=== PATIENT | male | born 2000 | race Two or more races ===

== ENCOUNTER 2021-04-29 11:40 | Emergency (ER) | payer SELFPAY ==
--- NOTE | ~2021-04-29 | XR_ITS ---
EXAMINATION: XR chest 2V DATE: 04/29/2021 11:59 INDICATION: Shortness of breath TECHNIQUE: PA and lateral views of the chest are obtained. COMPARISON: None available FINDINGS: The lungs are free of acute opacities. There is no pleural effusion or pneumothorax. The ca rdiomediastinal silhouette is normal. There is mild thoracic spondylosis. IMPRESSION: 1. No acute cardiopulmonary abnormality. Reviewed, dictated and finalized at location B.
[2021-04-29 11:42] VITALS: BP 127/83; PULSE 55; RESP 18; TEMP 36.3; O2SAT 100
--- NOTE | 2021-04-29 11:42 | ECG_ITS ---
Measurements Intervals [place] Rate: 51 P: 52 NM: 129 QRS: 92 QRSD: 106 T: 63 QT: 389 QTc: 359 Interpretive Statements SINUS BRADYCARDIA RIGHT AXIS DEVIATION [QRS AXIS > 90] ST-ELEVATION, LIKELY EARLY REPOLARIZATION [ST ELEVATION WITH NORMALLY INFLECTED T WAVE] VERSUS PERICARDITIS ABNORMAL ECG NO PREVIOUS ECG AVAILABLE FOR COMPARISON Electronically Signed On 04-29-2021 16:27:13 CDT by Ramy Wolfe M.D.
[2021-04-29 11:57] LABS: Basophils Percent Auto 0.3 % (0.2-1.2); Eosinophils Absolute Auto 0.2 K/mm3 (0-0.3); Eosinophils Percent Auto 1.6 % (0-4.4); Hematocrit 50.4 % (42.0-52.0); Immature Granulocyte Absolute 0.03 K/mm3 (0.00-0.031); Immature Granulocyte Percent A 0.3 % (0-0.5); Lymphocytes Absolute Auto 1.17 K/mm3 (0.9-3.2); Lymphocytes Percent Auto 12.7 % (18.3-44.2); Mean Corpuscular HGB Conc 33.7 g/dl (32-36); Mean Corpuscular Hemoglobin 31.7 pg (26-34); Mean Corpuscular Volume 93.9 fl (80-100); Mean Platelet Volume 9.7 fl (7.4-10.4); Monocytes Absolute Auto 0.8 K/mm3 (0.1-0.6); Monocytes Percent Auto 8.9 % (2.6-8.5); Neutrophils Percent Auto 76.2 % (45.5-73.1); Platelet Count Result 259 k/mm3 (150-375); Red Blood Count 5.37 M/mm3 (4.6-6.20); Red Cell Distribution Width 13.9 % (11.5-14.5); White Blood Count 9.2 K/mm3 (4.5-10.0)
[2021-04-29 12:06] LABS: Alanine Aminotransferase 31 U/L (4-50); Albumin Level 4.8 g/dL (3.7-5.6); Alkaline Phosphatase 65 U/L (58-237); Anion Gap 7 mmol/L (8-16); Aspartate Amino Transferase 45 U/L (17-59); Bilirubin,Total 0.7 mg/dL (0.2-1.3); Blood Urea Nitrogen 14 mg/dL (8-21); Calcium 9.4 mg/dL (8.9-10.7); Carbon Dioxide 27 mmol/L (22-30); Chloride 105 mmol/L (98-107); Estimated CRCL calculation 120 ml/min; Estimated Glomerular Filt Rate > 60; Glucose 117 mg/dL (65-110); Potassium 4.2 mmol/L (3.4-5.0); Sodium 139 mmol/L (134-143)
== END 2021-04-29 13:14 | disposition left against medical advice (07) ==
LOC: ANHED 13:01
PROVIDERS: Emergency Provider Emergency Medicine
DX: R07.9 Chest pain, unspecified (principal)
CPT/HCPCS: 36415; 71046; 80053; 85025; 93005; 99199

== ENCOUNTER 2021-06-22 15:46 | Inpatient (IN) | payer OTHER, SELFPAY ==
[2021-06-22] VITALS (48 sets, daily range): BP systolic 97–159; BP diastolic 62–99; PULSE 47–109; RESP 9–31; TEMP 36.7–36.9; O2SAT 96–100; BMI 29.7
--- NOTE | 2021-06-22 | ECHO_ITS ---
Patient Info Name: Bird Cheatham Age: 20 years : 2000 Gender: Male Ht: 69 in Wt: 200 lbs BSA: 2.12 m2 HR: 89 bpm BP: 141 / 81 mmHg Heart Rhythm: Sinus Rhythm Technical Quality: Good Exam Date: 06/22/2021 7:03 PM Exam Location: [facility] Pulmonary Exam Room: ER 5 Patient Status: Emergency Admit Date: 06/22/2021 Staff Ordering Physician: Eva Rick MD Cemetery Counselor: Audra Fish RDCS Attending Provider: Eliana Dee MD Exam Type: CA echo doppler color flow Study Info Indications - CHEST PAIN Complete two-dimensional, color flow and Doppler transthoracic echocardiogram is performed. Summary 1. Complete two-dimensional, color flow and Doppler transthoracic echocardiogram is performed. 2. Normal left ventricular size and thickness. Normal left ventricular function with no segmental wall motion abnormalities. Ejection fraction 60-65%. Global longitudinal strain was -19% which is normal. Normal diastolic function. 3. No significant valve abnormalities. 4. Borderline pulmonary hypertension. 5. No pericardial effusion. 6. Normal sinus rhythm. Left Ventricle Left ventricular chamber dimension is normal. Left ventricular systolic function is normal, estimated at Empty. There is no increased left ventricular wall thickness. Left ventricular septal wall motion is normal. The left ventricular diastolic function is normal. Right Ventricle Right ventricular chamber dimension is normal. Right ventricular systolic function is normal. Left Atria Left atrial chamber dimension is normal. Right Atria Right atrial chamber dimension is normal. Aortic Valve The aortic valve is trileaflet. There is no aortic valve sclerosis. There is no aortic valve stenosis. There is no aortic valve regurgitation. Pulmonic Valve The pulmonic valve is normal. There is no pulmonic valve stenosis. There is trace pulmonic regurgitation. Mitral Valve The mitral valve has normal leaflets. There is no mitral valve stenosis. There is trace mitral valve regurgitation. Tricuspid Valve The tricuspid valve leaflets are normal. There is no significant tricuspid valve stenosis. There is no tricuspid valve regurgitation. Mild pulmonary hypertension, estimated pulmonary arterial systolic pressure is 39 mmHg. Pericardium/Pleural The pericardium appears normal. There is no pericardial effusion. Inferior Vena Cava Normal inferior vena cava with >50% collapse upon inspiration consistent with Empty right atrial pressure, 5 mmHg. Aorta The aortic root size at the sinus of Valsalva is normal. The prox ascending aorta size is normal. Left Ventricular Outflow Tract Name Value Normal LVOT 2D LVOT Diameter 2.1 cm LVOT Doppler LVOT Peak Gradient 6 mmHg LVOT Mean Gradient 3 mmHg LVOT VTI 23 cm LVOT VTI/AV VTI Ratio 1.0 LVOT Stroke Volume 81 ml LVOT CO 17.8 l/min LVOT CI 8.4
--- NOTE | ~2021-06-22 | XR_ITS ---
EXAMINATION: XR chest 1V portable 06/22/2021 16:08 INDICATION: Chest pain PROCEDURE: 2 view chest COMPARISON: 04/29/2021 FINDINGS: The lungs are clear. The cardiomediastinal silhouette is within normal limits. There are no pleural effusions. There is no pneumothorax suspected. IMPRESSION: 1: NO ACUTE CARDIOPULMONARY DISEASE. Reviewed, dictated and finalized at location A.
--- NOTE | ~2021-06-22 | CT_ITS ---
EXAMINATION: CTA chest DATE: 06/22/2021 18:03 INDICATION: Chest pain RADIATING INTO l ARM, ELEVATED tROPONIN TECHNIQUE: Computed tomography angiography (CTA) of the chest was performed with 100 mL Omnipaque-300 intravenous contrast timed to evaluate the pulmonary arteries. Coronal maximum intensity projection 3D-reconstructions were created by the technologist. The dose-length product (DLP) was 620.92 mGy-cm. Automated exposure control and iterative reconstruction technique were employed. COMPARISON: None. FINDINGS: Study quality: Adequate. Pulmonary arteries: No pulmonary emboli detected. Thoracic aorta: Normal. Lung parenchyma and airways: Clear. Thoracic inlet, axillae and chest wall: Mild bilateral gynecomastia, otherwise unremarkable. Mediastinum: Subcentimeter prevascular lymph node. Residual thymic tissue. Heart and pericardium: Normal. Coronary artery calcifications: Absent. Pleura: Unremarkable. Upper abdomen: Low-density liver parenchyma. Multiple gastroesophageal lymph nodes measuring up to 8 mm in short axis diameter. Bones: No acute osseous finding. IMPRESSION: No CT evidence of acute pulmonary embolus. Possible steatosis. Reviewed, dictated and finalized at location K.
--- NOTE | 2021-06-22 15:48 | ECG_ITS ---
Measurements Intervals [place] Rate: 56 P: 61 IN: 121 QRS: 93 QRSD: 106 T: 63 QT: 389 QTc: 378 Interpretive Statements SINUS BRADYCARDIA RIGHT AXIS DEVIATION ST ELEVATION IN DIFFUSE LEADS- CONSIDER EARLY REPOLARIZATION ABNORMALITY BASELINE ARTIFACT- I, II, III, AVR, AVL, AVF BORDERLINE ECG Electronically Signed On 06-22-2021 16:22:11 CDT by Schuyler Gomez D.O.
--- NOTE | 2021-06-22 15:56 | ED.CHESTPAIN ---
HPI - Chest Pain General Chief Complaint: Chest Pain <Eva Rick MD - Last Filed: 06/22/21 19:02> Stated Complaint: chest pain <Eva Rick MD - Last Filed: 06/22/21 19:02> Time Seen by Provider: 06/22/21 15:56 <Eva Rick MD - Last Filed: 06/22/21 19:02> Source: patient and family <Eva Rick MD - Last Filed: 06/22/21 19:02> Mode of arrival: ambulatory <Eva Rick MD - Last Filed: 06/22/21 19:02> Limitations: no limitations <Eva Rick MD - Last Filed: 06/22/21 19:02> History of Present Illness HPI narrative: Patient is 20 years old white male came to the emergency room with sudden onset of retrosternal chest pain radiating left upper extremity and front of the neck, started 30 minutes prior to arrival. Had similar symptoms in April 2021 came to our emergency room then left the ED because his symptoms resolved. Patient's mother reports that patient have a lot of stress lately. Patient does not take medicine at home, he does vape and uses marijuana occasionally, denies cocaine use, denies any fever, chills, nausea, vomiting, shortness of breath. <Eva Rick MD - Last Filed: 06/22/21 19:02> Related Data Allergies/Adverse Reactions: Allergies Allergy/AdvReac Type Severity Reaction Status Date / Time No Known Allergies Allergy Verified 06/22/21 15:58 <Eva Rick MD - Last Filed: 06/22/21 19:02> Review of Systems Review of Systems: All systems reviewed & are unremarkable except as noted in HPI and below <Eva Rick MD - Last Filed: 06/22/21 19:02> PMFSH Past Medical History Medical History: Medical History (Updated 06/22/21 @ 18:26 by Emilia Mccoy MD) No significant past medical history <Eva Rick MD - Last Filed: 06/22/21 19:02> Family History Family History: Family History (Updated 06/22/21 @ 18:20 by Emilia Mccoy MD) Father Alive and well Mother Alive and well Other Heart disease uncle has had MIs and CABG Cerebrovascular accident <Eva Rick MD - Last Filed: 06/22/21 19:02> Social History Social History: Social History (Updated 06/22/21 @ 18:20 by Emilia Mccoy MD) Social History: did not finish high school. Currently not working. Vapes and uses marijuana no other drug use. Tobacco type: e-cigarettes/vaping Substance use type: marijuana <Eva Rick MD - Last Filed: 06/22/21 19:02> Exam Narrative: General appearance: Well-developed, well-nourished, looks anxious Skin: Normal color Head: Normocephalic, nontraumatic Eyes: Clear conjunctiva ENT: Oropharynx normal, ears normal, nose normal Neck: Supple, nontender Chest and respiratory: Airway patent, no respiratory distress, no accessory muscle use Heart: Regular rate/rhythm Abdomen: Soft, nontender, no organomegaly, quiet bowel sounds Vascular: Normal peripheral pulses, normal capillary refill. Musculoskeletal: Normal range of motion, nontender back Neurologic: Alert and oriented ?3, SATELL[employer] SPECIALIST is normal as tested, no gross motor deficit <Eva Rick MD - Last Filed: 06/22/21 19:02> Course Course Emergency Course: Patient arrived to the ED with retrosternal chest pain. His EKG showed ST elevation consistent with early repolarization, no difference between the EKG today and last EKG April 29, 2021. Initially patient received aspirin and Ativan for possible stress-induced chest pain, subsequently pain down from 10 out of 10 to 6 out of 10. His troponin came back at 4.4. Dr. Mccoy was consulted, came to the emergency room, then requested to give sublingual nitroglycerin, with some improvement down to 3 out of 10.
[2021-06-22] MEDS: ASPIRIN 81 MG CHEWABLE TABLET 324 MG PO (15:59)
[2021-06-22] MEDS: LORazepam INJ (*CRX) 2 MG/ML VIAL 1 MG IV PUSH (16:01)
[2021-06-22 16:10] LABS: Basophils Absolute Auto 0.1 K/mm3 (0.0-0.1); Basophils Percent Auto 0.7 % (0.2-1.2); Eosinophils Absolute Auto 0.9 K/mm3 (0-0.3); Eosinophils Percent Auto 8.3 % (0-4.4); Hemoglobin 17.3 g/dL (14.0-18.0); Immature Granulocyte Absolute 0.05 K/mm3 (0.00-0.031); Immature Granulocyte Percent A 0.4 % (0-0.5); Lymphocytes Absolute Auto 1.71 K/mm3 (0.9-3.2); Lymphocytes Percent Auto 15.1 % (18.3-44.2); Mean Corpuscular HGB Conc 33.9 g/dl (32-36); Mean Corpuscular Volume 94.3 fl (80-100); Mean Platelet Volume 9.8 fl (7.4-10.4); Monocytes Absolute Auto 1.2 K/mm3 (0.1-0.6); Monocytes Percent Auto 10.5 % (2.6-8.5); Neutrophils Absolute Auto 7.3 K/mm3 (1.3-6.7); Platelet Count Result 320 k/mm3 (150-375); Red Blood Count 5.41 M/mm3 (4.6-6.20); Red Cell Distribution Width 13.2 % (11.5-14.5); White Blood Count 11.3 K/mm3 (4.5-10.0)
[2021-06-22 16:21] LABS: Prothrombin Time 12.8 Seconds (11.1-14.7)
[2021-06-22 16:22] LABS: Partial Thromboplastin Time 29.3 SECONDS (22.3-36.8)
[2021-06-22 16:24] LABS: Alanine Aminotransferase 21 U/L (6-50); Albumin Level 4.7 g/dL (3.7-5.6); Alkaline Phosphatase 70 U/L (58-237); Anion Gap 10 mmol/L (8-16); Aspartate Amino Transferase 44 U/L (17-59); Bilirubin,Total 0.8 mg/dL (0.2-1.3); Blood Urea Nitrogen 9 mg/dL (8-21); Calcium 9.7 mg/dL (8.9-10.7); Carbon Dioxide 27 mmol/L (22-30); Chloride 103 mmol/L (98-107); Estimated CRCL calculation 88 ml/min; Estimated Glomerular Filt Rate > 60; Glucose 108 mg/dL (65-110); Lipase 70 U/L (23-300); Potassium 3.6 mmol/L (3.4-5.0); Sodium 140 mmol/L (134-143)
[2021-06-22 17:17] LABS: Erythrocyte Sedimentation Rate 10 mm/hr (0-20)
[2021-06-22] MEDS: NITROGLYCERIN SL 0.4 MG TABLET (17:31)
--- NOTE | 2021-06-22 17:31 | PC.NURSE ---
Pt given 1 SL 0.4 tab of Nitro at this time per Dr Thao DICKSON. Pt rates his pain a 5/10 currently.
--- NOTE | 2021-06-22 17:38 | PC.NURSE ---
2nd SL nitro tab given per Dr Mccoy, pt rates pain a 5/10, states no change or decrease in pain
[2021-06-22] MEDS: MORPHINE SULFATE (*CRX) 4 MG/ML INJ IV PUSH (18:07)
[2021-06-22] MEDS: ONDANSETRON INJ 4 MG/2 ML VIAL IV PUSH (18:07)
--- NOTE | 2021-06-22 18:13 | PM.CNCAR ---
Assessment and Plan Assessment and plan (1) Chest pain: Qualifiers: Chest pain type: unspecified Qualified Code(s): R07.9 - Chest pain, unspecified Code(s): R07.9 - Chest pain, unspecified Status: Acute Assessment and Plan: healthy young male presents with chest pain for 2 months which sounds atypical but intense chest discomfort tonight that sounds more typical for acute coronary syndrome /[place]. There is a pleuritic component suggestive of pericarditis. His EKG shows early repolarization, possible pericarditis. However his troponin is 4.4 which is unusual but can occur with a myopericarditis. Nothing in the history to suggest an acute aortic dissection. It would be extremely unusual for this young healthy man to have any acute coronary syndromes, coronary spasm, CAD. However I was concerned about his symptoms which sounded much like an acute coronary syndrome /[place] and reviewed the situation with our interventionalist, Dr. Asha Domínguez. He also reviewed the EKGs. He felt it was very unlikely to have an acute coronary syndrome and recommended a CTA and stat echo. Discussed with patient and mother. History of Present Illness History of Present Illness Consult date/time: 06/22/21 18:13 Requesting physician: Eva Rick MD Reason For Visit: chest pain Narrative: Bird Cheatham Is a 20-year-old male whom I was asked to see at the request of Dr. Rick for my advice and opinion regarding his chest pain, abnormal EKG and elevated troponins in consultation. Mr. Cheatham is a previously healthy young man with no significant past medical history. In April he experience stabbing chest pain and came to the emergency room. His EKG showed early repolarization. The pain went away and he left without being seen. He has had little episodes of chest discomfort and stabbing chest pains lasting for minute to 5 minutes off and on with no particular pattern. Yesterday was a normal day. Today 2 hours prior to admission he woke from his nap with bilateral arm aching, particularly the left arm which felt like it had been lifting a 1000 lb , and it was super sore. He started having substernal chest pressure and hard pushing. Later when he was riding in a car with his mother the pain intensified and radiated up to the throat area. the patient's mother said he could not get comfortable and appeared to be in severe pain, crying out and she brought him to the emergency room where he complained of 12/10 chest pain. He was given aspirin and Ativan; apparently he has been under lot of stress recently. The pain is decline to a 5/10 pressure. The discomfort has been waxing waning. I instructed his nurse to give nitro and after the 2nd one there may have been some improvement. There is a mild pleuritic component to it. There is no associated nausea vomiting or diaphoresis all he does have a headache. Is nonpositional and non reproducible. Patient's troponin is 4.4. There is nohistory of any hypertension or heart problems. He has not been doing any heavy lifting. He does vape and smokes marijuana, including this morning, but denies any otherdrug use, specifically no cocaine, methamphetamines etc.. No strong family history of heart disease. Review of Systems Review of Systems: history of COVID a year ago Constitutional: Constitutional: Reports no additional constitutional complaints Eyes: Eyes: Reports no additional eye complaints ENT: Denies epistaxis Comments: sore throat a few days ago Cardiovascular: Cardiovascular: Reports chest pain, Denies diaphoresis, Denies leg edema and Denies lightheadedness Respiratory: Respiratory: Denies cough and Denies dyspnea Gastrointestinal: Gastrointestinal: Denies abdominal pain Genitourinary: Genitourinary: Denies dysuria Musculoskeletal: Musculoskeletal: Reports no additional musculoskeletal complaints Integumentary/Breasts: Skin/Breast: Denies rash Neurologic: Report
[2021-06-22 19:45] LABS: Barbiturate Screen Urine Negative (Negative); Benzodiazepines Screen Urine Negative (Negative)
[2021-06-22 19:47] LABS: Amphetamine Screen Urine Negative (Negative); Cannabinoid Screen Urine Positive (Negative); Cocaine Screen Urine Negative (Negative); Methadone Screen Urine Negative (Negative); Opiate Screen Urine Negative (Negative); Phencyclidine Screen Urine Negative (Negative)
[2021-06-22] MEDS: COLCHICINE 0.6 MG TABLET PO (20:27)
[2021-06-22] MEDS: INDOMETHACIN 25 MG CAPSULE 75 MG PO (20:28)
--- NOTE | 2021-06-22 21:40 | ECG_ITS ---
Measurements Intervals [place] Rate: 52 P: 55 CA: 124 QRS: 97 QRSD: 114 T: 60 QT: 389 QTc: 364 Interpretive Statements SINUS BRADYCARDIA WITH SINUS ARRHYTHMIA RIGHT AXIS DEVIATION ST ELEVATION IN DIFFUSE LEADS- CONSIDER EARLY REPOLARIZATION ABNORMALITY BORDERLINE ECG Electronically Signed On 06-23-2021 6:42:30 CDT by Schuyler Gomez D.O.
--- NOTE | 2021-06-22 21:41 | ECG_ITS ---
Measurements Intervals [place] Rate: 69 P: 45 ME: 136 QRS: 104 QRSD: 93 T: 46 QT: 368 QTc: 397 Interpretive Statements SINUS RHYTHM WITH SINUS ARRHYTHMIA RIGHT AXIS DEVIATION BASELINE ARTIFACT- I, II, AVR, AVL, AVF BORDERLINE ECG Electronically Signed On 06-23-2021 6:37:53 CDT by Schuyler Gomez D.O.
[2021-06-22] MEDS: NITROGLYCERIN OINTMENT 1 INCH DOSE TRANSDERM (22:11)
[2021-06-22 22:53] LABS: SARS-CoV-2 RNA PCR Negative
--- NOTE | 2021-06-22 23:40 | ADMGEN ---
This patient, Bird Cheatham, was admitted to IMU Room 210-01 at 2340. Patient/family oriented to hospital policies and general routines including ID bracelet, bed and alarms, visiting hours, pain management, procedures, bathroom and other care routines, personal items, smoking policy, room service/diet, and visiting hours. Information on how to activate the Rapid Response Team has been discussed. Patient/Family are encouraged to report perceived risks to care and to ask questions if they do not understand what they are told or what they should do.
[2021-06-23] VITALS (23 sets, daily range): BP systolic 110–147; BP diastolic 45–79; PULSE 54–114; RESP 16–20; TEMP 36.5–37.2; O2SAT 95–100
--- NOTE | 2021-06-23 05:01 | PM.IMHP ---
H&P: HPI History of Present Illness Date/Time: 06/23/21 05:01 Chief Complaint: Chest pain Narrative: 20-year-old previously healthy male who presented to the ER with sudden onset of retrosternal chest pain radiating to the left upper extremity and the up the anterior neck. Then just been occurred while the patient was at rest. The pain had no eliciting factors. Patient did not have any increased pain with deep breathing. He reports that over the last 2 months he has had a couple of episodes of chest pain that or shorter lived in only last about 5 minutes and were sharp and stabbing in nature. He had not noticed any pattern to those chest pains. His pains this time were different any reported that is arm, chest and throat felt ?super sore.? He reported that felt like he had been lifting a 1000 lb weight. He did not have any associated nausea or diaphoresis. He has not had any nausea, vomiting, shortness of breath, cough, sore throat or viral symptoms. He denies any recent ill contacts. He has not noticed any lower extremity swelling, orthopnea or paroxysmal nocturnal dyspnea. Denies a history of palpitations. He reports that if he eats a lot of junk food he will have some heartburn symptoms. But his heartburn symptoms are different from the symptoms of brought him in this visit. He reports that recently he has been trying to watch what foods he eats and has managed to take off a few lb. He has not been doing any specific exercises. In the ER the patient received 2 nitroglycerin and morphine as well as Zofran. His pain was relieved after 2nd nitro and relieved after morphine. He has not had a recurrence of his chest pain. Patient does occasionally use marijuana. He gets his marijuana from the same source that he usually does any does not think that is marijuana has been laced with anything else. He has been vaping for a couple of years. He only drinks alcohol about once a week and only in moderation. Review of Systems Review of Systems: 12 systems were reviewed with pertinent positives and negatives per HPI. Except as documented in the HPI, all other systems were reviewed and are negative. [facility] Past Medical History Medical History (Updated 06/23/21 @ 08:46 by Jimena Gómez DO) No significant past medical history Surgical History Surgical History (Updated 06/23/21 @ 08:46 by Jimena Gómez DO) History of sinus surgery Family History Family History Father Alive and well Mother Alive and well Other Heart disease uncle has had MIs and CABG Cerebrovascular accident Social History Social History (Updated 06/23/21 @ 08:47 by Jimena Gómez DO) Social History: He went to high school through his [employer] year but did not graduate. He is currently unemployed. He has been vaping for 2 years. He uses marijuana daily. He drinks a couple of alcoholic beverages once a week. He lives at home with his mother. Smoking status: Current every day smoker Tobacco type: e-cigarettes/vaping Alcohol intake: current Substance use type: marijuana Spiritual care concerns: No Meds Home Medications and Allergies Allergies Allergy/AdvReac Type Severity Reaction Status Date / Time No Known Allergies Allergy Verified 06/22/21 15:58 Vital Signs Vital Signs - 24 hr 06/22/21 15:48 06/22/21 15:56 06/22/21 15:57 Temperature 98.4 F Pulse Rate 88 76 83 Respiratory Rate 18 13 14 Blood Pressure 149/99 H 156/63 H Pulse Oximetry 99 97 100 06/22/21 16:00 06/22/21 16:01 06/22/21 16:15 Temperature Pulse Rate 67 51 L 47 L Respiratory Rate 14 9 L 13 Blood Pressure 159/96 H Pulse Oximetry 100 100 100 06/22/21 16:17 06/22/21 16:30 06/22/21 16:32 Temperature Pulse Rate 59 L 55 L 52 L Respiratory Rate 11 L 14 16 Blood Pressure 156/96 H 134/73 Pulse Oximetry 99 100 98 06/22/21 16:45 06/22/21 16:46 06/22/21 17:00 [place]
[2021-06-23] MEDS: COLCHICINE 0.6 MG TABLET PO ×2 (08:36→21:20)
[2021-06-23] MEDS: ASPIRIN 81 MG CHEWABLE TABLET PO (08:36)
--- NOTE | 2021-06-23 09:06 | PM.PNCARD ---
Progress Note: A&P Additional Plan 1-NSTEMI 2-Marijuana use. This is 20-year-old patient with no medical problems who presents here with intermittent chest pain for the last couple months. It is central in location radiating to his neck. No aggravating or relieving factors. CTA thorax ruled out pulmonary embolism, aortic dissection. Troponins are elevated. EKG initially shows subtle ST elevations inferiorly and V2 to V6 that looks like early repolarization however pericarditis cannot be excluded. Echocardiogram looks unremarkable. At this time concerned about possible coronary dissection or coronary event. Discussed risks and benefits of cardiac catheterization with the patient including risk of bleeding, infection, damage to the arteries and vessels while working, emergency surgery, stroke, heart attack, , renal failure. Benefits outweigh the risk. He agrees to proceed. Will plan for cath this morning. Subjective Date/time seen: DOS: 06/23/21 09:06 06/23-resting comfortably in bed. Denies chest pain overnight. No arrhythmias overnight. Heart rate is normal Review of Systems Constitutional: Constitutional: Reports no additional constitutional complaints and Reports headache(s) Eyes: Eyes: Reports no additional eye complaints ENT: Reports headache(s) and Denies epistaxis Cardiovascular: Cardiovascular: Reports chest pain, Denies diaphoresis, Denies leg edema, Denies lightheadedness and Denies dyspnea Respiratory: Respiratory: Denies cough and Denies dyspnea Gastrointestinal: Gastrointestinal: Denies abdominal pain Genitourinary: Genitourinary: Denies dysuria Musculoskeletal: Musculoskeletal: Reports no additional musculoskeletal complaints Integumentary/Breasts: Skin/Breast: Denies rash Neurologic: Reports headache(s) Psychiatric: Psychiatric: Reports anxiety Exam Narrative: Young healthy-appearing male who appears concern but not in much distress, mother at the bedside. Const: General: no acute distress and uncomfortable HENMT: General nose exam: no epistaxis Eyes: EOM: EOMs intact bilaterally Neck: Neck: supple and no JVD Thyroid: thyroid normal Carotids: no bruits Lymphatic: lymphadenopathy not noted Chest: Other: no chest wall tenderness Resp: Auscultation: clear to auscultation bilaterally Cardio: Rate: regular rate Rhythm: regular rhythm Heart sounds: no murmurs and no rubs Other: Intact dorsalis pedis pulses GI: Inspection: non-distended Skin: General skin exam: normal color and no rashes or lesions noted Neuro: Cognition (Neuro): normal cognition Speech: normal speech Extrem: General: no edema and no pedal edema Psych: Mental Status: mental status grossly normal Affect: normal affect Objective Data Vital Signs Vital Signs: Vital Signs - 24 hr 06/22/21 15:48 06/22/21 15:56 06/22/21 15:57 Temperature 36.9 C Pulse Rate 88 76 83 Respiratory Rate 18 13 14 Blood Pressure 149/99 H 156/63 H Pulse Oximetry 99 97 100 06/22/21 16:00 06/22/21 16:01 06/22/21 16:15 Temperature Pulse Rate 67 51 L 47 L Respiratory Rate 14 9 L 13 Blood Pressure 159/96 H Pulse Oximetry 100 100 100 06/22/21 16:17 06/22/21 16:30 06/22/21 16:32 Temperature Pulse Rate 59 L 55 L 52 L Respiratory Rate 11 L 14 16 Blood Pressure 156/96 H 134/73 Pulse Oximetry 99 100 98 06/22/21 16:45 06/22/21 16:46 06/22/21 17:00 Temperature Pulse Rate 61 62 93 Respiratory Rate 11 L 15 31 H Blood Pressure 141/96 H Pulse Oximetry 100 98 99 06/22/21 17:02 06/22/21 17:08 06/22/21 17:20 Temperature Pulse Rate 57 L 79 56 L Respiratory Rate 26 H 18 18 Blood Pressure 146/68 H 146/68 H Pulse Oximetry 100 99 98 06/22/21 17:30 06/22/21 17:31 06/22/21 17:34 Temperature Pulse Rate 84 79 92 Respiratory Rate 20 27 H 28 H Blood Pressure 139/82 139/82 Pulse Oximetry 100 99 98 06/22/21 17:40 06/22/21 17:45 06/22/21 17:46 Temperature Pulse Rate 103 H 94 87
--- NOTE | 2021-06-23 10:23 | WPDMODSED ---
Moderate Sedation Note-Pt Data Patient Data Allergies Allergy/AdvReac Type Severity Reaction Status Date / Time No Known Allergies Allergy Verified 06/22/21 15:58 Current Medications: Active Medications Acetaminophen (Acetaminophen 325 Mg Tablet) 650 mg PO Q4H PRN PRN Reason: Pain Rated 1-3 Hydrocodone Bitart/Acetaminophen (Hydrocodone/Acetaminophen (*Crx) 5-325 Mg Tablet) 1 tab PO Q6H PRN PRN Reason: Pain Rated 4-6 Aspirin (Aspirin 81 Mg Chewable Tablet) 81 mg PO DAILY@0800 [facility] Last Admin: 06/23/21 08:36 Dose: 81 mg Documented by: Calcium Carbonate (Calcium Carbonate (Tums) 500 Mg (200 Mg Elemental)) 200 mg PO Q6H PRN PRN Reason: Indigestion Colchicine (Colchicine 0.6 Mg Tablet) 0.6 mg PO Q12HR [facility] Last Admin: 06/23/21 08:36 Dose: 0.6 mg Documented by: Sodium Chloride (Normal Saline Iv) 500 mls @ 100 mls/hr IV CONT .Q5H [facility] Nitroglycerin (Nitroglycerin Sl 0.4 Mg Tablet) 0.4 mg SUBLINGUAL Q5MIN PRN PRN Reason: chest pain Perflutren Lipid Microsphere (Perflutren Lipid Microspheres 1.5 Ml Vial Diluted To 10 Ml Total Volume) 0 ml IV PUSH ONCE PRN; Protocol PRN Reason: adequate visualization Sedation/Anesthesia: No previous sedation/anesthesia problems (including family history). FOR[facility], [facility] Past Medical History Medical History No significant past medical history Surgical History Surgical History History of sinus surgery Family History Family History Father Alive and well Mother Alive and well Other Heart disease uncle has had MIs and CABG Cerebrovascular accident Social History Social History Social History: He went to high school through his [employer] year but did not graduate. He is currently unemployed. He has been vaping for 2 years. He uses marijuana daily. He drinks a couple of alcoholic beverages once a week. He lives at home with his mother. Smoking status: Current every day smoker Tobacco type: e-cigarettes/vaping Alcohol intake: current Substance use type: marijuana Spiritual care concerns: No Mod Sed Physical Exam Physical Exam Pre Procedural Exam: Normal: Appearance, Eyes, Ears, Nose, Neck, Throat, Airway, Lungs, Heart Size, Heart Rate, Heart Rhythm, Neuro Exam, Abdomen, Liver, Kidneys, Spleen, Breasts, Genitalia, Extremities and Skin Hours since solid foods: 8 Hours since liquid intake: 8 Mallampati Classification: class 1 Internal Medicine - PN: Obj Da Vital Signs Vital Signs: Vital Signs - 24 hr 06/22/21 15:48 06/22/21 15:56 06/22/21 15:57 Temperature 36.9 C Pulse Rate 88 76 83 Respiratory Rate 18 13 14 Blood Pressure 149/99 H 156/63 H Pulse Oximetry 99 97 100 06/22/21 16:00 06/22/21 16:01 06/22/21 16:15 Temperature Pulse Rate 67 51 L 47 L Respiratory Rate 14 9 L 13 Blood Pressure 159/96 H Pulse Oximetry 100 100 100 06/22/21 16:17 06/22/21 16:30 06/22/21 16:32 Temperature Pulse Rate 59 L 55 L 52 L Respiratory Rate 11 L 14 16 Blood Pressure 156/96 H 134/73 Pulse Oximetry 99 100 98 06/22/21 16:45 06/22/21 16:46 06/22/21 17:00 Temperature Pulse Rate 61 62 93 Respiratory Rate 11 L 15 31 H Blood Pressure 141/96 H Pulse Oximetry 100 98 99 06/22/21 17:02 06/22/21 17:08 06/22/21 17:20 Temperature Pulse Rate 57 L 79 56 L Respiratory Rate 26 H 18 18 Blood Pressure 146/68 H 146/68 H Pulse Oximetry 100 99 98 06/22/21 17:30 06/22/21 17:31 06/22/21 17:34 Temperature Pulse Rate 84 79 92 Respiratory Rate 20 27 H 28 H Blood Pressure 139/82 139/82 Pulse Oximetry 100 99 98 06/22/21 17:40 06/22/21 17:45 06/22/21 17:46 Temperature Pulse Rate 103 H 94 87 Respiratory Rate 23 H 19 25 H Blood Pressure 142/72 H 143/62 H Pulse Oximetry 97 97 98 06/22/21 18:10 06/22/21 18:14 06/22/21
--- NOTE | 2021-06-23 10:24 | WPDCARDPROC ---
Cardiac Cath Procedure Note Date of procedure:: 06/23/21 Performing physician:: Paul Castillo MD Indication:: Chest pain and elevated troponins Brief clinical history:: 20-year-old patient with no significant past medical history presents with 1 month of intermittent chest pain, elevated troponins. EKG shows ST elevations inferior and anterolateral leads. This could be pericarditis however due to high troponins we need to rule out CAD Procedure Procedure performed:: 1-Moderate sedation that started at 9:46 a.m. and ended at 10:19 a.m. total duration 33 minutes using 4mg of Versed and c fentanyl. The registered nurse was nixon us. 2-Selective left and right coronary angiogram. 3-Left heart catheterization with measurement of LVEDP and measurement of gradient across aortic valve. 4- LV angiogram. 4-Right common femoral arterial angiogram. 5-Deployment of 6 [place] Angio-Seal. Sedation/Medication given:: Moderate sedation. Access site:: Right common femoral artery. Estimated blood loss:: 10cc Procedure note:: After informed consent patient was brought in to field laboratory operator with the was draped and prepped in usual manner. Moderate sedation was given and the right groin was infiltrated using 1% lidocaine. Five [place] sheath was obtained using micropuncture needle and the modified Seldinger technique. Selective left coronary angiogram was done using JL4 catheter with the tip of the catheter placed in the left main coronary artery. Selective right coronary angiogram was done using JR4 catheter And then AR1 catheter with the tip of the catheter placed to the right coronary artery. there was catheter-induced spasm with JR4 and therefore used AR1 along with nitroglycerin injection and the spasm much improved. After that 5 [place]an pigtail catheter was advanced across the aortic valve into the left ventricle with measurement of LVEDP and measurement of gradient across aortic valve. LV angiogram done. Right common femoral arterial angiogram was done. Findings:: 1- left coronary artery is a large artery that divides into large LAD, large circumflex artery. Left main is short and free of disease. 2- left anterior descending artery is a large artery that runs and wraps around the apex. free of disease. Large diagonal 1 branch free of disease. 3- leftcircumflex artery is a large artery Free of disease. Large OM1 free of disease. 4- right coronary artery is large artery and dominant and free of disease. There was catheter-induced spasm at the ostium that much improved with nitroglycerin. 5- LVEDP was 14 mm Hg and no gradient across aortic valve. 5- LV angiogram shows normal LV systolic function with no wall motion abnormalities. Ascending aorta appears to be normal. 6- opening arterial pressure was 150/80 and closing pressure was 120/80 7- right femoral artery angiogram shows no significant disease in the right common femoral artery. Conclusion:: no CAD - most likely this is myopericarditis. Assessment and Plan Additional Plan - start colchicine. - aspirin 81 mg
[2021-06-23] MEDS: SODIUM CHLORIDE 0.9% IV 1,000 ML 125 ML IV CONT (13:15)
[2021-06-23] MEDS: HYDROcodone/acetaminophen (*CRX) 5-325 MG TABLET 1 TAB PO ×2 (14:56→21:19)
--- NOTE | 2021-06-23 15:41 | PM.IMPN ---
Progress Note: A&P Assessment and Plan (1) Chest pain: Qualifiers: Chest pain type: unspecified Qualified Code(s): R07.9 - Chest pain, unspecified Code(s): R07.9 - Chest pain, unspecified Status: Acute Assessment and Plan: (2) Marijuana use: Code(s): F12.90 - Cannabis use, unspecified, uncomplicated Status: Acute (3) Myopericarditis: Code(s): I31.9 - Disease of pericardium, unspecified Status: Acute Additional Plan Intermittent chest pain x1 month CTA negative for PE or dissection EKG with early repolarization versus mild ST elevation Significantly elevated troponin up to 10 Echocardiogram with no abnormality Cardiac catheterization done 06/23/2021 with no coronary artery disease Most likely myopericarditis Colchicine started EBV and CMV orders COVID PCR negative Will check for influenza Time Spent With Patient Time with patient: 15 - 25 minutes Subjective Date/time seen: 06/23/21 15:41 Interval history: HPI:20-year-old previously healthy male who presented to the ER with sudden onset of retrosternal chest pain radiating to the left upper extremity and the up the anterior neck. Then just been occurred while the patient was at rest. The pain had no eliciting factors. Patient did not have any increased pain with deep breathing. He reports that over the last 2 months he has had a couple of episodes of chest pain that or shorter lived in only last about 5 minutes and were sharp and stabbing in nature. He had not noticed any pattern to those chest pains. His pains this time were different any reported that is arm, chest and throat felt ?super sore.? He reported that felt like he had been lifting a 1000 lb weight. He did not have any associated nausea or diaphoresis. He has not had any nausea, vomiting, shortness of breath, cough, sore throat or viral symptoms. He denies any recent ill contacts. He has not noticed any lower extremity swelling, orthopnea or paroxysmal nocturnal dyspnea. Denies a history of palpitations. He reports that if he eats a lot of junk food he will have some heartburn symptoms. But his heartburn symptoms are different from the symptoms of brought him in this visit. He reports that recently he has been trying to watch what foods he eats and has managed to take off a few lb. He has not been doing any specific exercises. In the ER the patient received 2 nitroglycerin and morphine as well as Zofran. His pain was relieved after 2nd nitro and relieved after morphine. He has not had a recurrence of his chest pain. Patient does occasionally use marijuana. He gets his marijuana from the same source that he usually does any does not think that is marijuana has been laced with anything else. He has been vaping for a couple of years. He only drinks alcohol about once a week and only in moderation. 06/23/2021 no overnight events. no nauea, vomting. chest is sore but better. no fever, chills. cath note reviewed Review of Systems Review of Systems: All systems reviewed & are unremarkable except as noted in HPI and below (HPI) Exam Narrative: General: No acute distress, overweight HEENT: Mucous membranes are moist, no oral pharyngeal erythema, crowded posterior oropharynx, large neck circumference Respiratory: Clear to auscultation bilaterally, no increased work of breathing Cardiovascular: Regular rate, regular rhythm, 2+ bilateral radial pedal pulses, no pericardial rub, no murmur Gastrointestinal: Soft, nontender, nondistended, positive bowel sounds Skin: Non jaundice, no pallor Musculoskeletal: No clubbing, cyanosis or edema Neurological: Alert and oriented, speech is clear, no facial asymmetry Psychiatric: Appropriate mood and affect, cooperative : Deferred Hematologic/lymphatic: No anterior cervical lymphadenopathy, no petechiae, no bruising Objective Data Vital Signs Vital Signs: Vital Signs - 24 hr 06/22/21 15:48
[2021-06-23 18:52] LABS: Influenza Control Positive
[2021-06-24] VITALS (13 sets, daily range): BP systolic 131–138; BP diastolic 65–81; PULSE 54–106; RESP 16–24; TEMP 36.3–37; O2SAT 95–100
[2021-06-24] MEDS: COLCHICINE 0.6 MG TABLET PO (08:24)
[2021-06-24] MEDS: ASPIRIN 81 MG CHEWABLE TABLET PO (08:24)
--- NOTE | 2021-06-24 09:45 | PM.PNCARD ---
Progress Note: A&P Assessment and Plan (1) Myopericarditis: Code(s): I31.9 - Disease of pericardium, unspecified Status: Acute Assessment and Plan: Placed on colchicine yesterday which is to be continued for [address] Castillo. Patient is free from chest pain this morning. Troponin trended down. Discussed with patient and his mother who is at the bedside that any recurrence of chest pain or shortness of breath should be evaluated. He is stable for discharge home today from a cardiac perspective. Close outpatient follow up. (2) Chest pain: Qualifiers: Chest pain type: unspecified Qualified Code(s): R07.9 - Chest pain, unspecified Code(s): R07.9 - Chest pain, unspecified Status: Acute Assessment and Plan: healthy young male presents with chest pain for 2 months which sounds atypical but intense chest discomfort tonight that sounds more typical for acute coronary syndrome /TN. There is a pleuritic component suggestive of pericarditis. His EKG shows early repolarization, possible pericarditis. However his troponin is 4.4 which is unusual but can occur with a myopericarditis. Nothing in the history to suggest an acute aortic dissection. It would be extremely unusual for this young healthy man to have any acute coronary syndromes, coronary spasm, CAD. Nevertheless, the decision was made to proceed to the pipelines laborer for coronary angiogram which did not reveal any CAD, dissection, stress CMY. Subjective Date/time seen: 06/24/21 09:45 Cardiology follow up for chest pain, elevated troponins, myopericarditis Feeling significantly better this morning. He has no chest pain. Denies any shortness of breath or palpitations. His troponin level has trended down. Review of Systems Constitutional: Constitutional: Reports no additional constitutional complaints and Reports headache(s) Eyes: Eyes: Reports no additional eye complaints ENT: Reports headache(s) and Denies epistaxis Cardiovascular: Cardiovascular: Reports chest pain, Denies diaphoresis, Denies leg edema, Denies lightheadedness and Denies dyspnea Respiratory: Respiratory: Denies cough and Denies dyspnea Gastrointestinal: Gastrointestinal: Denies abdominal pain Genitourinary: Genitourinary: Denies dysuria Musculoskeletal: Musculoskeletal: Reports no additional musculoskeletal complaints Integumentary/Breasts: Skin/Breast: Denies rash Neurologic: Reports headache(s) Psychiatric: Psychiatric: Reports anxiety Exam Narrative: Young healthy-appearing male resting comfortably in bed Const: General: no acute distress and uncomfortable HENMT: General nose exam: no epistaxis Eyes: EOM: EOMs intact bilaterally Neck: Neck: supple and no JVD Thyroid: thyroid normal Carotids: no bruits Lymphatic: lymphadenopathy not noted Chest: Other: no chest wall tenderness Resp: Auscultation: clear to auscultation bilaterally Cardio: Rate: regular rate Rhythm: regular rhythm Heart sounds: no murmurs and no rubs Other: Intact dorsalis pedis pulses GI: Inspection: non-distended Skin: General skin exam: normal color and no rashes or lesions noted Other: Right groin arterial access site free from bleeding, hematoma, bruit. Neuro: Cognition (Neuro): normal cognition Speech: normal speech Extrem: General: no edema and no pedal edema Psych: Mental Status: mental status grossly normal Affect: normal affect Objective Data Vital Signs Vital Signs: Vital Signs - 24 hr 06/23/21 10:45 06/23/21 11:00 06/23/21 11:15 Temperature 36.8 C Pulse Rate 59 L 54 L 59 L Respiratory Rate 16 16 16 Blood Pressure 125/68 121/74 119/69 Pulse Oximetry 99 96 97 06/23/21 11:30 06/23/21 12:00 06/23/21 12:30 Temperature Pulse Rate 62 56 L 55 L Respiratory Rate 16 18 18 Blood Pressure 120/70 126/74 132/73 Pulse Oximetry 98 98 97 06/23/21 12:52 06/23/21 13:30 06/23/21 14:00 Temperature 36.6 C Pulse Rate 62 9
--- NOTE | 2021-06-24 16:19 | PM.DS ---
DS: Admitting Diagnosis Discharge Date 06/24/2021 Admitting Diagnosis chest pain DS: Discharge Diagnosis Discharge Diagnosis (1) Chest pain: Qualifiers: Chest pain type: unspecified Qualified Code(s): R07.9 - Chest pain, unspecified Code(s): R07.9 - Chest pain, unspecified Status: Acute (2) Marijuana use: Code(s): F12.90 - Cannabis use, unspecified, uncomplicated Status: Acute (3) Myopericarditis: Code(s): I31.9 - Disease of pericardium, unspecified Status: Acute DS: Summary Hospital Course Hospital Course: patient presented with Intermittent chest pain x1 month CTA negative for PE or dissection EKG with early repolarization versus mild ST elevation troponin was significantly elevated up to 10 Echocardiogram with no abnormality Cardiac catheterization done 06/23/2021 with no coronary artery disease Most likely myopericarditis Colchicine started EBV and CMV orders which are pending COVID PCR negative however reports recent history of COVID infection month ago check for influenza which came back negative He will be continued on colchicine scheduled and ibuprofen p.r.n. for his myopericarditis Follow-up with Cardiology on outpatient basis Time Spent with Patient Time attestation: Total time spent providing and/or coordinating discharge services: 45 minutes Exam Narrative: General: No acute distress, overweight HEENT: Mucous membranes are moist, no oral pharyngeal erythema, crowded posterior oropharynx, large neck circumference Respiratory: Clear to auscultation bilaterally, no increased work of breathing Cardiovascular: Regular rate, regular rhythm, 2+ bilateral radial pedal pulses, no pericardial rub, no murmur Gastrointestinal: Soft, nontender, nondistended, positive bowel sounds Skin: Non jaundice, no pallor Musculoskeletal: No clubbing, cyanosis or edema Neurological: Alert and oriented, speech is clear, no facial asymmetry Psychiatric: Appropriate mood and affect, cooperative : Deferred Hematologic/lymphatic: No anterior cervical lymphadenopathy, no petechiae, no bruising DS: Data Data Completed and Pending Labs on day of discharge: Labs from last 24 hours 06/24/21 06/23/21 05:30 18:31 Troponin I 6.470 H* Influenza Types A,B Ag Negative Procedures/Treatments: Cardiac Cath Procedure Note Date of procedure:: 06/23/21 Performing physician:: Paul Castillo MD Indication:: Chest pain and elevated troponins Brief clinical history:: 20-year-old patient with no significant past medical history presents with 1 month of intermittent chest pain, elevated troponins. EKG shows ST elevations inferior and anterolateral leads. This could be pericarditis however due to high troponins we need to rule out CAD Procedure Procedure performed:: 1-Moderate sedation that started at 9:46 a.m. and ended at 10:19 a.m. total duration 33 minutes using 4mg of Versed and c fentanyl. The registered nurse was nixon us. 2-Selective left and right coronary angiogram. 3-Left heart catheterization with measurement of LVEDP and measurement of gradient across aortic valve. 4- LV angiogram. 4-Right common femoral arterial angiogram. 5-Deployment of 6 [place] Angio-Seal. Sedation/Medication given:: Moderate sedation. Access site:: Right common femoral artery. Estimated blood loss:: 10cc Procedure note:: After informed consent patient was brought in to chemical lab supervisor with the was draped and prepped in usual manner. Moderate sedation was given and the right groin was infiltrated using 1% lidocaine. Five [place] sheath was obtained using micropuncture needle and the modified Seldinger technique. Selective left coronary angiogram was done using JL4 catheter with the tip of the catheter placed in the left main coronary artery. Selective right coronary angiogram was done using JR4 catheter And then AR1 catheter with the tip of the catheter placed to the right coronary artery. the
[2021-06-26 15:21] LABS: CMV IgG Antibody <0.60 U/mL (<0.60)
[2021-06-28 09:42] LABS: CMV IgM Antibody <30.00 AU/mL (<30.00)
== END 2021-06-24 16:36 | disposition home or self-care (01) | DRG 192 ==
LOC: ANHED 18:56 → ANHIMU 22:42
PROVIDERS: Emergency Medicine; Internal Medicine Cardiovascular Disease; Nurse Practitioner; Admitting Provider Internal Medicine; Emergency Provider Emergency Medicine; Visit Provider Internal Medicine
PROC: 4A023N7 Measurement of Cardiac Sampling and Pressure, Left Heart, Percutaneous Approach (ICD-10-PCS; CPT 93452; principal; 2021-06-23 09:15)
PROC: 4A023N8 Measurement of Cardiac Sampling and Pressure, Bilateral, Percutaneous Approach (ICD-10-PCS; 2021-06-23 09:15)
DX: I31.9 Disease of pericardium, unspecified (principal); Z20.822 Contact with and (suspected) exposure to COVID-19; F17.290 Nicotine dependence, other tobacco product, uncomplicated; F12.90 Cannabis use, unspecified, uncomplicated; I20.1 Angina pectoris with documented spasm; Z86.16 Personal history of COVID-19
CPT/HCPCS: 36415; 71045; 71275; 80053; 80307; 83690; 84484; 85025; 85610; 85652; 85730; 86644; 86645; 87804; 93005; 93306; 93458; 96374; 96375; 99285; A9270; C1760; C1887; C1894; C9803; G0269; J1644; J2060; J2250; J2270; J2405; J3010; J7030; J7040; Q9967; U0003; U0005